=== PATIENT | female | born 1975 | race Caucasian/White ===

== ENCOUNTER 2017-02-20 16:53 | Emergency (ER) | payer BC, OTHER ==
[~2017-02-20 16:53] MED LIST: ASPIRIN81 M1 PO; ATIVAN1 M1 PO; AZITHROMYCIN250 M1 PO; CATAFLAM50 MG PO; CYANOCOBAL1000 MCG/3 IM; CYANOCOBALAMIN INJ; CYCLOBENZAPRINE5 M1 PO; Cyanocobalamin IJ; FLEXERIL10 MG PO; HYDROCODON-ACE1 EA16 PO; IBU-200200 MG; KEFLEX500 MG; LEVAQUIN500 MG PO; LORTAB 5-325 M1 EAC1 PO; MECLIZINE HCL25 MG PO; MEDROL4 M2 PO; MOTRIN600 MG PO; NICODERM14 MG/PAT1 TD; NORCO 5-325 TA1 EACH PO; NORCO 5/325 TAB1 TAB PO; PERCOCET 5/3251 TAB; PERCOCET 5/3251 TAB PO; PREMARIN0.625 MG; PRILOSEC20 M1 PO; VITAMIN B-12 IM; VITAMIN B12 IM; VITAMIN B12-FO1 EAC1 PO; VITAMIN D1000 UNI1 PO; VITAMIN D350000 UNI1 PO; VITAMIN D50000 UNI2 PO; VITAMIN D50000 UNIT PO; ZITHROMAX TRI-500 MG; ZOFRAN ODT4 MG PO
[2017-02-20] MEDS ORDERED: VITAMIN D250000 UNI1 PO (17:03)
[2017-02-20] MEDS ORDERED: OMEPRAZOLE20 M3 PO (17:10)
[2017-02-20] MEDS ORDERED: ALOE VERA237 ML PO (17:29)
[2017-02-20 17:52] LABS: BASO % 0.3 % (0-2); EOS % 3.2 % (0-7); EOSINOPHIL ABSOLUTE COUNT 0.2 tho/cmm (0.0-0.7); HCT-HEMATOCRIT 40.1 % (34.0-49.0); HGB-HEMOGLOBIN 13.8 gm/dl (12.0-15.5); IMMATURE GRANULOCYTES ABSOLUTE 0.01 tho/cmm (0-0.03); IMMATURE GRANULOCYTES PERCENT 0.1 % (0-0.3); LYMPH % 30.8 % (20-45); LYMPH ABSOLUTE COUNT 2.3 tho/cmm (0.8-4.5); MCH (MEAN CORPUSCULAR HGB) 31.9 pg (28.0-32.0); MCHC MEAN CORPUSCULAR HGB CONC 34.4 % (32.0-36.0); MCV (MEAN CELL VOLUME) 92.8 fl (82.0-96.0); MEAN PLATELET VOLUME 10.7 cmc (9.4-12.4); MONO % 9.7 % (0-12); MONOCYTE ABSOLUTE COUNT 0.7 tho/cmm (0.0-1.2); NEUTROPHIL ABSOLUTE COUNT 4.2 tho/cmm (1.6-8.0); NEUTROPHIL-AUTOMATED 4.2 tho/cmm (1.6-8.0); NEUTROPHILS % 55.9 % (40-80); PLATELET COUNT 272 tho/cmm (150-450); RED BLOOD COUNT 4.32 mil/cmm (4.00-5.20); RED CELL DISTRIBUTION WIDTH 13.1 % (12.4-16.4); WHITE BLOOD COUNT 7.6 tho/cmm (4.0-10.0)
[2017-02-20 18:08] LABS: ANION GAP 11 mmol/L (0-20); BLOOD UREA NITROGEN 5 mg/dl (6-24); CALCIUM 8.7 mg/dl (8.5-10.5); CARBON DIOXIDE-VENOUS 26 mmol/L (22-32); CHLORIDE 107 mmol/l (96-110); CREATININE 0.63 mg/dl (0.50-1.10); GLUCOSE 93 mg/dL (70-110); POTASSIUM 3.6 mmol/L (3.7-5.1); SODIUM 140 mmol/L (135-145); eGFR VALUE FOR BLACK >90 mL/Min
== END 2017-02-20 19:11 ==
LOC: EDMED 16:53
PROVIDERS: Emergency Medicine
DX: K29.70 Gastritis, unspecified, without bleeding (principal); R07.89 Other chest pain; Z95.1 Presence of aortocoronary bypass graft